=== PATIENT | male | born 1955 | race Caucasian/White ===

== ENCOUNTER 2021-03-12 15:49 | Outpatient (CLI) | payer OTHER, SELFPAY | END 2021-03-12 15:50 | disposition home or self-care (01) | LOC: ANHCOVIDVC 15:49 | PROVIDERS: PCP Family Medicine | DX: Z23 Encounter for immunization (principal) | CPT/HCPCS: 0001A; 91300 ==

== ENCOUNTER 2021-04-02 16:01 | Outpatient (CLI) | payer OTHER, SELFPAY | END 2021-04-02 16:02 | disposition home or self-care (01) | LOC: ANHCOVIDVC 16:02 | PROVIDERS: PCP Family Medicine | DX: Z23 Encounter for immunization (principal) | CPT/HCPCS: 0002A; 91300 ==

== ENCOUNTER 2023-12-06 07:55 | Emergency (ER) | payer OTHER, MEDICARE, SELFPAY ==
--- NOTE | ~2023-12-06 | CT_ITS ---
Non-contrast Head CT History: Nausea and vomiting Technique: Axial non-contrast imaging of the brain was performed. Dose reduction technique was used on this scan by utilizing automated exposure control and iterative reconstruction technique. The dose -length product (DLP) was 681.00 mGy-cm. Findings: There is no evidence of intracranial hemorrhage, mass lesion, or acute infarct. Brain par enchyma appears normal. The ventricles and subarachnoid spaces are normal in size. The calvarium ap pears normal. Left maxillary sinus disease noted. The remaining visualized paranasal sinuses and mast oid air cells are clear. Impression: No intracranial abnormality seen. Left maxillary sinus disease. Reviewed, dictated and finalized at location . ENTRY CLERK Impression: No intracranial abnormality seen. Left maxillary sinus disease.
[2023-12-06 08:58] VITALS: BP 123/50; PULSE 92; RESP 17; TEMP 36.6; O2SAT 98
[2023-12-06 10:02] VITALS: BP 118/66; PULSE 65; RESP 20; TEMP 36.2; O2SAT 99
--- NOTE | 2023-12-06 10:03 | ED.GENADULT ---
HPI - General Adult General Chief complaint: Nausea/Vomiting/Diarrhea <Lizzie Nova LOOPER FIXER - Last Filed: 12/06/23 10:07> Stated complaint: n/v <Lizzie Benitez March - Last Filed: 12/06/23 10:07> Time Seen by Provider: 12/06/23 14:54 <Lizzie Benitez March,N - Last Filed: 12/06/23 10:07> History of Present Illness HPI narrative: Davis Ribeiro is a 68 y/o male with reported No PMHx/ not on any daily medications /smoker pack a day. Presents via EMS with complaints of waking up today with dizziness at 0400, got up felt nauseated and vomited X1. Pt was given PO zofran in route and reports nausea is gone/ dizziness has improved some but not completely gone. Denies headache/ vision changes/ double vision/ denies abdominal pain/ denies numbness /tingling/ weakness/ Patient is alert and oriented X 4 Denies chest pain/ shortness of breath / denies palpitations. <Lizzie Benitez March, - Last Filed: 12/06/23 10:07> Related Data Home medications: Home Medications Medication Instructions Recorded Confirmed coenzyme Q10 200 mg capsule (Co 200 mg PO DAILY 06/19/20 12/04/21 Q-10) krill 300 mg-omega 3 90 mg-dha 24 1 cap PO DAILY 06/19/20 12/04/21 mg-epa 50 [id number] capsule (MegaRed [place]ells-3 Krill Oil) multivit with min-folic 1 tablet PO DAILY 06/19/20 12/04/21 acid-lutein 400 mcg-250 mcg chewable tablet (Centrum Silver) niacin 500 mg tablet 500 mg PO DAILY 06/19/20 12/04/21 <Lizzie Benitez March,N - Last Filed: 12/06/23 10:07> Allergies/adverse reactions: Allergies Allergy/AdvReac Type Severity Reaction Status Date / Time No Known Allergies Allergy Verified 12/06/23 08:59 <Lizzie Benitez March, LOOPER FIXER - Last Filed: 12/06/23 10:07> Review of Systems Review of Systems: All systems reviewed & are unremarkable except as noted in HPI and below <Sanchez Prasad MD - Last Filed: 12/06/23 15:43> Constitutional: Constitutional: Reports no additional constitutional complaints <Sanchez Prasad MD - Last Filed: 12/06/23 15:43> ENT: Reports vertigo, Reports dizziness, Reports nasal congestion and Denies sore throat <Sanchez Prasad MD - Last Filed: 12/06/23 15:43> Cardiovascular: Cardiovascular: Reports no additional cardiovascular complaints <Sanchez Prasad MD - Last Filed: 12/06/23 15:43> Respiratory: Respiratory: Reports no additional respiratory complaints <Sanchez Prasad MD - Last Filed: 12/06/23 15:43> Gastrointestinal: Gastrointestinal: Denies abdominal pain, Denies diarrhea, Reports nausea and Reports vomiting <Sanchez Prasad MD - Last Filed: 12/06/23 15:43> Integumentary/Breasts: Skin/Breast: Reports system reviewed and no additional complaints, except as docu <Sanchez Prasad MD - Last Filed: 12/06/23 15:43> Neurologic: Denies confusion, Denies syncope, Denies headache(s), Denies focal weakness and Denies numbness <Sanchez Prasad MD - Last Filed: 12/06/23 15:43> PMFSH Past Medical History Medical History: Medical History (Updated 12/06/23 @ 15:38 by Sanchez Prasad MD) Cyst of buttocks Encounter for surgical aftercare following surgery on the skin and subcutaneous tissue Epidermal cyst (07/05/19) Healthy adult Postoperative seroma of skin after non-dermatologic procedure <Lizzie Nova APRN - Last Filed: 12/06/23 10:07> Family History Family History: Family History (Updated 01/30/22 @ 11:33 by Terrence Rodriguez MA) Father Alcoholism <Lizzie Nova APRN - Last Filed: 12/06/23 10:07> Social History Social History: Social History (Updated 01/30/22 @ 11:37 by Terrence Rodriguez MA) Smoking packs per day: 1 Smoking cigarettes per day: 20.0 Years smoked: 30 Smoking pack-years: 30.00 Smoking status: Current every day smoker Second hand tobacco smoke exposure: Yes Alcohol intake: current Drinks per week: 4 Alcohol use details: Gonzalo Substance use: never Living arrangements: with family 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
--- NOTE | 2023-12-06 10:07 | ECG_ITS ---
Measurements Intervals [place] Rate: 61 P: 91 GA: 177 QRS: 107 QRSD: 90 T: 87 QT: 411 QTc: 416 Interpretive Statements SINUS RHYTHM RIGHT AXIS DEVIATION INCOMPLETE RIGHT BUNDLE BRANCH BLOCK BORDERLINE R WAVE PROGRESSION, ANTERIOR LEADS BASELINE ARTIFACT- I, III, AVL BORDERLINE ECG COMPARED TO ECG 06/17/2019 08:36:31 NO SIGNIFICANT CHANGES Electronically Signed On 12-06-2023 13:13:55 SUPPORT SERVICES MANAGER by Phil Nance D.O.
[2023-12-06] MEDS: MECLIZINE HCL 25 MG TABLET PO (10:39)
[2023-12-06 10:56] LABS: Basophils Absolute Auto 0.1 K/mm3 (0.0-0.1); Basophils Percent Auto 0.6 % (0.2-1.2); Eosinophils Absolute Auto 0.1 K/mm3 (0-0.3); Eosinophils Percent Auto 0.5 % (0-4.4); Hematocrit 37.2 % (42.0-52.0); Hemoglobin 12.5 g/dL (14.0-18.0); Immature Granulocyte Absolute 0.04 K/mm3 (0.00-0.031); Immature Granulocyte Percent A 0.4 % (0-0.5); Lymphocytes Absolute Auto 1.15 K/mm3 (0.9-3.2); Lymphocytes Percent Auto 10.9 % (18.3-44.2); Mean Corpuscular HGB Conc 33.6 g/dl (32-36); Mean Corpuscular Hemoglobin 32.4 pg (26-34); Mean Corpuscular Volume 96.4 fl (80-100); Mean Platelet Volume 9.2 fl (7.4-10.4); Monocytes Absolute Auto 0.4 K/mm3 (0.1-0.6); Monocytes Percent Auto 3.7 % (2.6-8.5); Neutrophils Absolute Auto 8.9 K/mm3 (1.3-6.7); Neutrophils Percent Auto 83.9 % (45.5-73.1); Platelet Count Result 287 k/mm3 (150-375); Red Blood Count 3.86 M/mm3 (4.6-6.20); Red Cell Distribution Width 12.5 % (11.5-14.5); White Blood Count 10.6 K/mm3 (4.5-10.0)
[2023-12-06 11:08] LABS: Lactic Acid Reflex 0.7 mmol/L (0.7-2.0)
[2023-12-06 11:09] LABS: Alanine Aminotransferase 23 U/L (6-50); Albumin Level 3.9 g/dL (3.5-5.1); Alkaline Phosphatase 96 U/L (38-126); Anion Gap 6 mmol/L (8-16); Aspartate Amino Transferase 31 U/L (17-59); Bilirubin,Total 0.7 mg/dL (0.2-1.3); Blood Urea Nitrogen 4 mg/dL (9-20); Calcium 8.7 mg/dL (8.4-10.2); Carbon Dioxide 25 mmol/L (22-30); Chloride 98 mmol/L (98-107); Estimated CRCL calculation 98 ml/min; Estimated Glomerular Filt Rate > 60; Glucose 118 mg/dL (65-110); Lipase 35 U/L (23-300); Potassium 4.2 mmol/L (3.4-5.0); Sodium 129 mmol/L (137-145)
[2023-12-06 11:21] LABS: Troponin I < 0.012 ng/mL (0.000-0.034)
[2023-12-06 14:53] VITALS: BP 151/86; PULSE 67; RESP 16; O2SAT 100
[2023-12-06 15:14] LABS: Appearance Urine Clear (Clear); Bilirubin Urine Negative (Negative); Blood Urine Negative (Negative); Color Urine Yellow (Yellow); Glucose Urine UA Negative (Negative); Ketones Urine Trace mg/dL (Negative); Leukocyte Esterase Ur Negative LEU/UL (Negative); Nitrate Urine Negative (Negative); Protein Urine Negative (Negative); Specific Grav Ur 1.006 (1.001-1.035); Urobilinogen Urine 0.2 mg/dL (<2.0); pH Urine 7.5 (5.0-9.0)
[2023-12-06 15:21] LABS: Add Urine Microscopic? NO
[2023-12-06 15:41] VITALS: BP 155/91; PULSE 67; RESP 17; O2SAT 100
== END 2023-12-06 15:48 | disposition home or self-care (01) ==
PROVIDERS: Nurse Practitioner Family; Emergency Provider Emergency Medicine; PCP Family Medicine
DX: R42 Dizziness and giddiness (principal); H61.23 Impacted cerumen, bilateral; F17.210 Nicotine dependence, cigarettes, uncomplicated; J32.0 Chronic maxillary sinusitis; I45.10 Unspecified right bundle-branch block; R94.31 Abnormal electrocardiogram [ECG] [EKG]
CPT/HCPCS: 36415; 69209; 69210; 70450; 80053; 81003; 83605; 83690; 84484; 85025; 93005; 99284; A9270

== ENCOUNTER 2023-12-27 10:14 | Outpatient (CLI) | payer OTHER, MEDICARE, SELFPAY ==
[2023-12-27 18:50] LABS: Alanine Aminotransferase 19 U/L (6-50); Albumin Level 4.2 g/dL (3.5-5.1); Alkaline Phosphatase 79 U/L (38-126); Anion Gap 6 mmol/L (8-16); Aspartate Amino Transferase 37 U/L (17-59); Bilirubin,Total 0.9 mg/dL (0.2-1.3); Blood Urea Nitrogen 7 mg/dL (9-20); Calcium 9.2 mg/dL (8.4-10.2); Carbon Dioxide 26 mmol/L (22-30); Chloride 100 mmol/L (98-107); Cholesterol 198 mg/dL (0-200); Estimated Glomerular Filt Rate > 60; Glucose 99 mg/dL (65-110); HDL Direct 58 mg/dL; Potassium 4.3 mmol/L (3.4-5.0); Sodium 132 mmol/L (137-145); Triglycerides 78 mg/dL (<150)
[2023-12-27 19:01] LABS: LDL Cholesterol Direct 110 mg/dL
[2023-12-27 19:56] LABS: Prostate Specific Antigen 2.4 ng/mL (< OR = 4.0)
[2023-12-27 21:36] LABS: Hemoglobin A1C 5.3 % (<5.7)
[2023-12-27 22:48] LABS: Sodium Urine Random 33 meq/L
== END 2023-12-27 10:15 | disposition home or self-care (01) ==
PROVIDERS: PCP Family Medicine; Visit Provider Family Medicine
DX: Z13.228 Encounter for screening for other metabolic disorders (principal); Z12.5 Encounter for screening for malignant neoplasm of prostate; E11.9 Type 2 diabetes mellitus without complications; E87.1 Hypo-osmolality and hyponatremia; Z13.220 Encounter for screening for lipoid disorders
CPT/HCPCS: 36415; 80053; 80061; 83036; 84153; 84300; G0103